=== PATIENT | female | born 2000 | race Caucasian/White ===

== ENCOUNTER 2020-03-05 15:57 | Emergency (ER) | payer SELFPAY ==
--- NOTE | 2020-03-05 16:50 | NUR ---
1605: Informed by registration staff that patient's grandmother is refusing to leave the waiting room and states her granddaughter will not come back to the ED for treatment without her grandmother. 1612: Called patient's name in waiting room, grandmother verbalized to this staff member that patient will not come back to the ED without her grandmother because patient has social anxiety. Grandmother informed of current no visitor policy, patient and grandmother left ED without being seen.
== END 2020-03-05 16:15 | disposition left against medical advice (07) ==
LOC: ER FS 16:00
DX: R11.10 Vomiting, unspecified (principal)